=== PATIENT | male | born 1945 | race Hispanic/Latino ===

== ENCOUNTER 2019-03-24 17:58 | Emergency (ER) | payer OTHER ==
[2019-03-24] MEDS ORDERED: ASPIRIN 81MG TAB.CHEW ONE (18:36)
[2019-03-24 18:44] LABS: BASOPHILS % (AUTO) 0.7 % (0.0-5.0); EOSINOPHILS % (AUTO) 1.8 % (0.0-8.0); HEMATOCRIT 44.7 % (42-54); LYMPHOCYTES % (AUTO) 34.6 % (21.0-51.0); MEAN CORPUSCULAR HEMOGLOBIN 32.8 pg (27.0-33.0); MEAN CORPUSCULAR HGB CONC 35.9 g/dL (32.0-36.0); MEAN CORPUSCULAR VOLUME 91.4 fL (79-99); MONOCYTES % (AUTO) 15.6 % (3.0-13.0); NEUTROPHILS % (AUTO) 47.3 % (40.0-77.0); NUCLEATED RED BLOOD CELLS 0.1 % (0.0-0.19); PLATELET COUNT (AUTO) 157 K/uL (130-400); RED BLOOD CELL COUNT(AUTO) 4.88 MIL/uL (4.50-6.20); RED CELL DISTRIBUTION WIDTH 13.6 % (11.0-15.5); WHITE BLOOD COUNT (AUTO) 5.2 K/uL (4.8-10.8)
[2019-03-24 18:48] LABS: RAPID GROUP A STREP NEGATIVE (NEGATIVE)
[2019-03-24 18:53] LABS: INR 0.98 (0.85-1.15); PARTIAL THROMBOPLASTIN TIME 29.7 SEC (26.3-35.5); PROTHROMBIN TIME 10.3 SEC (9.6-11.6)
[2019-03-24 18:57] LABS: APPEARANCE,URINE Clear (CLEAR); BILIRUBIN,URINE Negative (NEGATIVE); COLOR,URINE Yellow (YELLOW); GLUCOSE, URINE (UA) TRACE mg/dL (NEGATIVE); KETONES,URINE Negative (NEGATIVE); LEUKOCYTE ESTERASE ,URINE Trace (NEGATIVE); NITRATE,URINE Negative (NEGATIVE); OCCULT BLOOD,URINE Negative (NEGATIVE); PH,URINE 6.5 (5.0-8.0); PROTEIN,URINE Negative (NEGATIVE)
[2019-03-24 19:00] LABS: ALBUMIN 3.2 g/dL (3.5-5.0); BILIRUBIN,TOTAL 0.6 mg/dL (0.2-1.0); CREATININE 1.4 mg/dL (0.5-1.5); TOTAL PROTEIN, SERUM 6.6 g/dL (6.0-8.3)
[2019-03-24] MEDS ORDERED: CEFTRIAXONE SODIUM 1 GM ONE (19:18)
[2019-03-24] MEDS ORDERED: SODIUM CHLORIDE 0.9% 50 ML IV ONE (19:18)
[2019-03-24 19:25] LABS: POTASSIUM 3.7 mmol/L (3.5-5.1)
[2019-03-24] MEDS ORDERED: IPRATROPIUM/ALBUTEROL SULFATE 3 ML SOLUTION IH ONE (19:37)
[2019-03-24 19:51] LABS: BACTERIA,URINE Rare /HPF (None Seen); RBC,URINE 0-1 /HPF (0-1); SQUAMOUS EPITHELIAL CELL,UR Few /HPF (0-2)
== END 2019-03-24 20:28 | disposition home or self-care (01) ==
LOC: EDH 17:58
DX: J18.9 Pneumonia, unspecified organism (principal)
CPT/HCPCS: 36415; 71045; 80053; 81001; 84484; 85025; 85610; 85730; 87040 ×2; 87804 ×2; 87880; 93005; 94640; 96374; 99285; J0696

== ENCOUNTER → 2025-05-21 | Outpatient (CLI) | payer OTHER ==
--- NOTE | 2025-05-21 17:53 | HMCIMG ---
EXAM: CT Abdomen and Pelvis Without IV contrast CLINICAL HISTORY: ABDOMEN PAIN UNSPECIFIED, ACUTE KIDNEY FAILURE, CALCULUS OF KIDNEY TECHNIQUE: Axial computed tomography images of the abdomen and pelvis without intravenous contrast. CONTRAST: No IV contrast. COMPARISON: None provided. FINDINGS: LUNG BASES: The lung bases appear clear. No pleural effusions are seen. LIVER: Unremarkable. GALLBLADDER AND BILE DUCTS: The gallbladder appears within normal limits. No radioopaque gallstones are seen. No biliary ductal dilatation is evident. PANCREAS: Unremarkable. SPLEEN: Unremarkable. ADRENAL GLANDS: Unremarkable. KIDNEYS, URETERS, AND BLADDER: 4 mm stone in the left distal ureter with mild left hydroureteronephrosis. No right renal or ureteral stones. No right hydronephrosis. STOMACH AND BOWEL: No bowel obstruction or inflammation. APPENDIX: Normal appendix. PERITONEUM: No free fluid. No free air. LYMPH NODES: No lymphadenopathy is evident. REPRODUCTIVE: Unremarkable as visualized. VASCULATURE: No evidence of abdominal aortic aneurysm. BONES: No aggressive appearing osseous lesion. No acute osseous pathology evident. IMPRESSION: 1. 4 mm stone in the left distal ureter with mild left hydroureteronephrosis. 2. No right renal or ureteral stones. No right hydronephrosis. 3. No bowel obstruction or inflammation. Normal appendix. /[place]
== END | disposition home or self-care (01) ==
LOC: RAH 15:25
PROVIDERS: ATTEND Internal Medicine
DX: N13.2 Hydronephrosis with renal and ureteral calculous obstruction (principal); N17.9 Acute kidney failure, unspecified; R10.9 Unspecified abdominal pain
CPT/HCPCS: 74176

== ENCOUNTER 2025-06-12 21:15 | Emergency (ER) | payer OTHER ==
[~2025-06-12] VITALS: Ht 177.8 cm; Wt 99.8 kg
[2025-06-12 22:31] LABS: IMMATURE GRANULOCYTE ABSOLUTE 0.06 K/uL (0-1); NUCLEATED RED BLOOD CELLS 0.0 % (0.0-0.19); PLATELET COUNT (AUTO) 191 K/uL (130-400); RED BLOOD CELL COUNT(AUTO) 4.59 MIL/uL (4.50-6.20); RED CELL DISTRIBUTION WIDTH 12.5 % (11.0-15.5); WHITE BLOOD COUNT (AUTO) 10.4 K/uL (4.8-10.8)
[2025-06-12 22:43] LABS: CREATININE 1.7 mg/dL (0.5-1.3); GLOMERULAR FILTR. RATE CALC 41.0 mL/min (>90); GLUCOSE,RANDOM 151.0 mg/dL (70-105); SODIUM SERUM 140.0 mmol/L (136-145); UREA NITROGEN, BLOOD 27.0 mg/dL (7-18)
[2025-06-12] MEDS ORDERED: IOHEXOL-350 75 ML VIAL IV ONE (23:06)
--- NOTE | 2025-06-12 23:35 | ERN ---
General Chief Complaint: Back Pain-No Injury Stated Complaint: C/O LEFT LOWER BACK PAIN Time Seen by MD: 21:20 Source: patient History of Present Illness Initial Comments Patient is a 79-year-old male with type 2 diabetes and hypertension who comes in because of low back pain that he rates 5/10. He states that he does have a kidney stone that was 4 mm and he was planning on going to get a CT scan for his primary care doctor tomorrow to see whether or not the stone had passed. He comes in today because he was concerned about his low back pain. States no fevers no chills no difficulty urinating or defecating. They are concerned because he does have a history of sepsis from a urinary stone approximately 10 years ago Timing/Duration: 24 hours, 1 week, constant Allergies: Coded Allergies: Cephalexin (Verified Allergy, Unknown, 03/17/14) Penicillins (Verified Allergy, Unknown, 03/17/14) Past Medical History Past Medical History: Diabetes-Type II, High Cholesterol, Other Medical History Other: HX OF KIDNEY STONES Past Surgical History: Other Surgical History Other: HX OF PROSTATE SX Constitutional: (-) chills, (-) diaphoresis, (-) fever, (-) malaise, (-) weakness, (-) other documentation EENTM: (-) eye pain, (-) blurred vision, (-) tearing, (-) double vision, (-) ear pain, (-) ear discharge, (-) nose pain, (-) nose congestion, (-) throat pain, (-) Throat swelling, (-) mouth pain, (-) tooth pain, (-) mouth swelling, (-) other documentation Respiratory: (-) cough, (-) orthopnea, (-) short of breath, (-) stridor, (-) wheezing, (-) other documentation Cardiovascular: (-) chest pain, (-) edema, (-) palpitations, (-) syncope, (-) dyspnea on exertion, (-) other documentation Gastrointestinal/Abdominal: (-) nausea, (-) vomiting, (-) diarrhea, (-) abdominal pain, (-) abdominal distention, (-) constipation, (-) rectal bleeding, (-) dark stool/melena, (-) other documentation Genitourinary: (-) penile discharge, (-) dysuria, (-) frequency, (-) hematuria, (-) pain, (-) other documentation Musculoskeletal: (-) Neck pain, (-) back pain, (-) Flank Pain, (-) joint pain, (-) joint swelling, (-) muscle pain, (-) muscle stiffness, (-) gout, (-) other documentation Skin: (-) laceration, (-) contusion, (-) abrasion, (-) abscess, (-) rash, (-) change in color, (-) change in hair, (-) change in nails, (-) diaphoresis, (-) dryness, (-) other documentation Physical Exam General Appearance: (+) no apparent distress Orientation: (+) alert, (+) oriented x 3 Head/Face Trauma: No Eye: bilateral eye normal inspection, bilateral eye PERRL, bilateral eye EOMI Ear, Nose, Throat: (+) hearing grossly normal, (+) normal ENT inspection, (+) moist mucous membraine, (+) normal pharynx Neck: (+) normal inspection, (+) supple, (+) full range of motion Respiratory: (+) chest non-tender, (+) lungs clear, (+) well ventilated Heart: (+) regular, (+) no gallop Vascular: (+) no edema, (+) normal peripheral pulse Gastrointestinal: (+) soft, (+) non-tender, (+) no organomegaly, (+) bowel sound present Back: (+) normal inspection, (+) no CVA tenderness Results Laboratory and Microbiology Lab and Micro Result Laboratory Tests Test 06/12/25 22:09 06/13/25 00:07 White Blood Count 10.4 K/uL (4.8-10.8) Red Blood Count 4.59 MIL/uL (4.50-6.20) Hemoglobin 14.5 g/dL (14.0-18.0) Hematocrit 40.5 % (42-54) L Mean Corpuscular Volume 88.2 fL (79-99) Mean Corpuscular Hemoglobin 31.6 pg (27.0-33.0) Mean Corpuscular Hemoglobin Concent 35.8 g/dL (32.0-36.0) Red Cell Distribution Width 12.5 % (11.0-15.5) Platelet Count 191 K/uL (130-400) Mean Platelet Volume 11.0 fL (7.5-10.5) H Immature Granulocyte % (Auto) 0.6 % (0-1) Neutrophils (%) (Auto) 71.9 % (40.0-77.0) Lymphocytes (%) (Auto) 16.8 % (21.0-51.0) L Monocytes (%) (Auto) 9.9 % (3.0-13.0) Eosinophils (%) (Auto) 0.6 % (0.0-8.0) Basophils (%) (Auto) 0.2 % (0.0-5.0) Neutrophils # (Auto) 7.5 K/uL (1.8-7.7) Lymphocytes # (Auto) 1.8 K/uL (1.0-4.8) Monocytes # (Auto) 1.0 K/uL (0.1-1.0) Eosinophils # (Auto) 0.06 K/uL (0.00-0.70) Basophils # (Auto) 0.02 K/uL (0.00-0.20) Absolute Immature Granulocyte (auto 0.06 K/uL (0-1) Nucleated Red Blood Cells 0.0 % (0.0-0.19) Sodium Level 140 mmol/L (136-145) Potassium Level 3.9 mmol/L (3.5-5.1) Chloride Level 104 mmol/L (101-111) Carbon Dioxide Level 25 mmol/L (21-32) Blood Urea Nitrogen 27 mg/dL (7-18) H Creatinine 1.7 mg/dL (0.5-1.3) H Glomerular Filtration Rate Calc 41 mL/min (>90) Random Glucose 151 mg/dL (70-105) H Total Calcium 8.3 mg/dL (8.5-10.1) L Procalcitonin 0.05 ng/mL (0.05-0.5) Urine Color LIGHT-YELLOW (YELLOW) Urine Appearance CLEAR (CLEAR) Urine pH 6.0 (5.0-8.0) Urine Specific [place] 1.045 (1.001-1.031) Urine Protein NEGATIVE mg/dL (NEGATIVE) Urine Glucose (UA) NEGATIVE mg/dL (NEGATIVE) Urine Ketones NEGATIVE mg/dL (NEGATIVE) Urine Occult Blood SMALL (NEGATIVE) H Urine Nitrate NEGATIVE (NEGATIVE) Urine Bilirubin NEGATIVE mg/dL (NEGATIVE) Urine Urobilinogen 0.2 mg/dL (0.2-1.0) Urine Leukocyte Esterase 250 Jasmin/uL (NEGATIVE) H Urine RBC 2-5 /HPF (0-1) H Urine WBC 11-25 /HPF (0-1) H Urine Squamous Epithelial Cells FEW /HPF (0-2) Urine Bacteria None /HPF (None Seen) MDM MDM: Differential diagnosis: Nephrolithiasis, dehydration, urinary tract infection, muscle spasm, arthritis, spinal stenosis. Rationale: Tests considered and ordered secondary to shared decision making include: Previous outside records reviewed: Old ER visits. Risk of complication and/or morbidity or mortality of patient management: None Medications-Per medication reconciliation Need for hospitalization: Patient does meet criteria for hospitalization. Need for emergency major/minor surgery: No There are no social concerns with this patient. Prescription drug management Prescriptions will include symptomatic care Patient's prior external medical records from other ER visits were reviewed by me as indicated. Prior testing and results from previous visits were reviewed. Prior tests were taken into account with medical decision making and resource utilization, independent historian/historians were used to obtain complete medical history. I independently interpreted the test that were performed, results were reviewed by me and considered findings on radiology if ordered. Patient's CBC is normal. Chemistry panel shows a slight elevation of the BUN and a creatinine. Blood glucose of 151. Urine shows specific gravity of 1.045 small amount of blood leukocyte esterase activity of 250. I think the UA results 0.2 dehydration and blood from a kidney stone. Not a true infection but I will prescribe an antibiotic for seven days just to be safe. CT scan shows a kidney stone in his bladder which the patient passed when he provided are urine sample. He does have what appears to be some chronic inflammation around both his kidneys. He has not obstructed. Both ureters show contrast flowing to the bladders. There appear to be some residual hydronephrosis from his ureteral stone 10 years ago on the left. ED Course Orders Procedure Category Date Status Time Basic Metabolic Panel LAB 06/12/25 Complete 21:47 Cbc With Differential LAB 06/12/25 Complete 21:47 Procalcitonin LAB 06/12/25 Complete 21:47 Urinalysis Profile LAB 06/12/25 Complete 21:47 Ct Abdomen/Pelvis CT 06/12/25 Resulted W/Wo Contras 21:47 Iohexol (Omnipaque) PHA 06/12/25 Complete 23:06 Lactated Ringers PHA 06/12/25 Complete 1000ml (Lactated 23:43 Culture Urine JUNIOR 06/13/25 In Process 00:27 Current Medications Medications (Trade) Dose Ordered Sig/Cuco Route PRN Reason Start Time Stop Time Status Last Admin Dose Admin Iohexol (Omnipaque) 75 ml STK-MED ONCE IV 06/12/25 23:06 06/12/25 23:10 DC Lactated Ringer's (Lactated Ringers 1000ml) 1,000 ml BOLUS STAT IV 06/12/25 23:43 06/12/25 23:48 DC 06/12/25 23:58 Vital Signs Date Time Temp Pulse Resp B/P (MAP) Pulse Ox O2 Delivery O2 Flow Rate FiO2 06/12/25 22:12 98.8 88 18 135/74 20 Room Air* 0 21 06/12/25 21:18 98.2 76 20 124/71 97 Room Air DX & DISP Disposition: Discharge Departure Impression: Primary Impression: Nephrolithiasis Additional Impressions: Dehydration, UTI (urinary tract infection) Condition: Stable Scripts Nitrofurantoin Macrocrystal (Nitrofurantoin) 100 Mg Capsule 1 CAP PO BID for 7 Days, #14 CAP 0 Refills Prov: IVIS SHELTON MD 06/13/25 Additional Instructions: You have a kidney stone in your bladder and it appears to have been past when you were providing are urine sample. You do have high leukocyte count inside your bladder which may indicate an infection. I have written a prescription and sent to your pharmacy to cover this. In addition your urine analysis showed that you are very dehydrated. You need to drink plenty of fluids. Drink enough fluids so that each day your urine runs clear at least once. Good luck with your primary care appointment with your physician tomorrow morning Referrals: WILLIAM BUI MD (PCP) IVIS SHELTON MD Jun 12, 2025 23:35
[2025-06-12] MEDS: LACTATED RINGERS 1000ML IV STA (23:58)
--- NOTE | 2025-06-13 00:18 | HMCIMG ---
EXAM: CT Abdomen and Pelvis without and with IV contrast. CLINICAL HISTORY: Nephrolithiasis. TECHNIQUE: Thin collimated axial CT images of the abdomen and pelvis were obtained, with sagittal and coronal reformatted images also submitted. A CT scan is done according to ALARA (As Low As Reasonably Achievable). CONTRAST: Omnipaque 350. COMPARISON: Prior CT abdomen and pelvis dated 05/21/25. FINDINGS: Unremarkable visualized lung parenchyma. No focal abnormality within the gallbladder, pancreas, spleen, or adrenals. Mild diffuse fatty infiltration of the liver. Bilateral mild perinephric fat stranding concerning renal parenchymal disease. Mild hydronephrosis with mild hydroureter on the left side. No ureteric calculus is visualized. Mild sigmoid diverticulosis with no acute diverticulitis. There is no obvious bowel wall thickening. Bowel loops are normal in caliber without evidence of obstruction or ileus. No acute appendicitis. A 4 mm calculus within the urinary bladder suggests a recently passed left ureteric calculus. Unremarkable reproductive organs. Abdominal and pelvic vessels are patent. No lymphadenopathy. No free fluid. There is no acute osseous abnormality. Multilevel thoracolumbar spondylosis. Bilateral small inguinal hernia containing fat. IMPRESSIONS: Mild hydronephrosis with mild hydroureter on the left side. A small calculus within the urinary bladder lumen suggests a recently passed left ureteric calculus. There is an interval displacement of the left distal ureteric calculus in the urinary bladder compared to the previous CT dated 05/21/2025.. Bilateral mild perinephric fat stranding concerning renal parenchymal disease. /[place]
[2025-06-13 00:26] LABS: APPEARANCE,URINE CLEAR (CLEAR); GLUCOSE, URINE (UA) NEGATIVE (NEGATIVE); LEUKOCYTE ESTERASE ,URINE 250 Leu/uL (NEGATIVE); NITRATE,URINE NEGATIVE (NEGATIVE); OCCULT BLOOD,URINE SMALL (NEGATIVE)
[2025-06-13 00:27] LABS: ADD UA MICROSCOPIC YES
[2025-06-13 00:29] LABS: SQUAMOUS EPITHELIAL CELL,UR FEW /HPF (0-2)
[2025-06-13] MEDS ORDERED: NITR100C PO (00:45)
[2025-06-13 01:05] VITALS: BP 128/74; PULSE 85; RESP 18; TEMP 98.8; O2SAT 98
== END 2025-06-13 01:05 | disposition home or self-care (01) ==
LOC: EDH 21:15
DX: N20.0 Calculus of kidney (principal); E86.0 Dehydration; N39.0 Urinary tract infection, site not specified; E11.9 Type 2 diabetes mellitus without complications; E78.00 Pure hypercholesterolemia, unspecified; I10 Essential (primary) hypertension; Z88.0 Allergy status to penicillin; Z88.1 Allergy status to other antibiotic agents
CPT/HCPCS: 99284; 74178; 80048; 85025; 87086; 81001; 36415; 84145; J7120; Q9967